=== PATIENT | male | born 1965 | race Caucasian/White ===

== ENCOUNTER 2017-10-20 06:34 | Day surgery (SDC) | payer OTHER ==
[~2017-10-20 06:34] MED LIST: Lactated Ringers 1,000 ML IV SCH
[2017-10-20] MEDS ORDERED: fentaNYL 100 MCG/2 ML SDV ONE (07:36)
[2017-10-20] MEDS ORDERED: Propofol 200 MG/20 ML SDV ONE (07:36)
[2017-10-20] MEDS ORDERED: Midazolam 1 MG/ML 2 ML SDV ONE (07:37)
--- NOTE | 2017-10-20 14:35 | OR ---
DATE OF PROCEDURE: 10/20/2017 PREOPERATIVE DIAGNOSIS: Colon cancer screening. POSTOPERATIVE DIAGNOSIS: Unremarkable colonoscopy. PROCEDURE PERFORMED: Colonoscopy to the cecum. ANESTHESIA: IV anesthesia with monitored anesthesia care. INDICATION: This 51-year-old white male is referred for a colonoscopy for colon cancer screening. He has never had a colonoscopic exam. I counseled him for the procedure including risks and alternatives, and he gave his informed consent to proceed. DESCRIPTION OF PROCEDURE: The patient was placed in the left lateral decubitus position. IV anesthesia was administered by the Anesthesia Service. Time-out was held. A rectal exam was performed, which was unremarkable. The flexible video Olympus colonoscope was introduced through his anus, up his rectum, and out his colon, all the way to the cecum. Once the cecum was reached, the scope was slowly withdrawn, examining the mucosa throughout. No mucosal abnormalities were noted. The scope was retroflexed in the rectum with the distal rectum appearing unremarkable. The scope was straightened and removed. He tolerated the procedure well. Marco A Posadas MD /[id number]
== END 2017-10-20 09:20 | disposition home or self-care (01) ==
LOC: JP.SDS 06:34
PROVIDERS: ATTEND Surgery
DX: Z12.11 Encounter for screening for malignant neoplasm of colon (principal); K21.9 Gastro-esophageal reflux disease without esophagitis
CPT/HCPCS: 45378; J2250; J2704; J3010; J7120

== ENCOUNTER 2021-04-25 20:27 | Emergency (ER) | payer OTHER ==
[2021-04-25] MEDS ORDERED: Acetaminophen 325 MG Tab PO PRN (20:47)
[2021-04-25] MEDS ORDERED: REMDESIVIR 200 MG in Sodium Chloride 0.9% 250 ML IV ONE (20:47)
--- NOTE | 2021-04-25 20:53 | EDM.PDOC ---
ED HPI GENERAL MEDICAL PROBLEM - General Chief Complaint: Respiratory Problem Stated Complaint: COVID POSITIVE, SOB, COUGH Time Seen by Provider: 04/25/21 20:40 Source of Information: Reports: Patient History Limitations: Reports: No Limitations - History of Present Illness INITIAL COMMENTS - FREE TEXT/NARRATIVE: Luther is a 55-year-old male presenting to the ED for evaluation of extreme shortness of breath, generalized weakness, body aches, and decreased appetite secondary to being Covid positive. Patient first had symptoms on 04/16/2021 but was officially diagnosed with COVID-19 on 04/22/2021. He states over the last 3 to 4 days he has become increasingly short of breath. Upon arrival to the ED had an SPO2 of 60% on room air. He is extremely tachypneic, tachycardic, and in respiratory distress. He normally receives his medical care at the [facility]. - Related Data Allergies Allergy/AdvReac Type Severity Reaction Status Date / Time No Known Allergies Allergy Verified 04/25/21 20:44 Home Meds: Home Meds Ibuprofen 400 mg PO ASDIRECTED PRN 10/18/17 [History] Acetaminophen [Tylenol Extra Strength] 500 mg PO ASDIRECTED 04/25/21 [History] Past Medical History HEENT History: Reports: Impaired Vision Musculoskeletal History: Reports: None - Infectious Disease History Infectious Disease History: Reports: Chicken Pox, Mumps, Novel Coronavirus - Past Surgical History HEENT Surgical History: Reports: None Musculoskeletal Surgical History: Reports: Other (See Below) Other Musculoskeletal Surgeries/Procedures:: Dislocated hip/anesthesia to put back in. rotator cuff surgery Social & Family History - Caffeine Use Caffeine Use: Reports: Coffee ED ROS GENERAL - Review of Systems Review Of Systems: See Below Constitutional: Reports: Fever, Chills, Malaise, Weakness, Decreased Appetite HEENT: Reports: No Symptoms Respiratory: Reports: Shortness of Breath, Cough Cardiovascular: Reports: Palpitations Endocrine: Reports: Fatigue GI/Abdominal: Reports: Decreased Appetite : Reports: No Symptoms Musculoskeletal: Reports: Muscle Pain Skin: Reports: No Symptoms Neurological: Reports: No Symptoms Psychiatric: Reports: Anxiety Hematologic/Lymphatic: Reports: No Symptoms Immunologic: Reports: No Symptoms ED EXAM, GENERAL - Physical Exam Exam: See Below Exam Limited By: Respiratory Distress General Appearance: Alert, Anxious, Severe Distress Eye Exam: Bilateral Eye: EOMI, PERRL Throat/Mouth: Normal Oropharynx, No Airway Compromise Head: Atraumatic, Normocephalic Neck: Normal Inspection Respiratory/Chest: Respiratory Distress, Decreased Breath Sounds (Diminished breath sounds in the bases), Rhonchi (Better rhonchi bilaterally), Other (Tachypnea) Cardiovascular: Normal Peripheral Pulses, Regular Rate, Rhythm, Tachycardia Peripheral Pulses: 2+: Radial (L), Radial (R) GI/Abdominal: Normal Bowel Sounds, Soft, Non-Tender Extremities: Normal Inspection, Normal Range of Motion Neurological: Alert, Oriented, Normal Cognition, No Motor/Sensory Deficits Psychiatric: Anxious Skin Exam: Warm, Dry, Normal Color ED RESPIRATORY PROCEDURES - Endotracheal Intubation Time of Intubation: 22:49 ET Intubation Indication: Respiratory Failure Preparation: Suction, Balloon Tested, BVM Set Up, Difficult Airway Equip Airway Assessment: Profuse Secretions Pre-Oxygenation: Assisted with BVM, 100% FiO2 Anesthesia Meds: Etomidate, Rocuronium Placement: Orotracheal, Cuffed Cords Visualized: Yes ETT Size In mm: 9.0 Number of Attempts: 1 Confirmed By: Bilateral Breath Sounds, Chest Xray Tube Secured By: By Provider Course - Vital Signs Last Recorded V/S: Last Vital Signs Temp 36.7 C 04/25/21 20:51 Pulse 88 04/25/21 23:22 Resp 18 04/25/21 23:22 BP 132/74 04/25/21 23:22 Pulse Ox 87 L 04/25/21 23:22 - Orders/Labs/Meds Orders: Active Orders 24 hr Category Date Time Status RASS Sedation Scale [RC] ASDIRECTED Care 04/25/21 22:25 Ordered Ang Chest [CT] Stat Exams 04/25/21 22:17 Ordered Chest 1V Frontal [CR] Stat Exams 04/25/21 Ordered Chest 1V Frontal [CR] Stat Exams 04/25/21 20:49 Taken CULTURE BLOOD [BC] Stat Lab 04/25/21 21:15 Ordered HEPATIC FUNCTION PANEL,HFP [CHEM] DAILY Lab 04/26/21 21:00 Ordered HEPATIC FUNCTION PANEL,HFP [CHEM] DAILY Lab 04/27/21 21:00 Ordered HEPATIC FUNCTION PANEL,[facility] [CHEM] DAILY Lab 04/28/21 21:00 Ordered HEPATIC FUNCTION PANEL,[facility] [CHEM] DAILY Lab 04/29/21 21:00 Ordered Acetaminophen [TylenoL] Med 04/25/21 20:47 Active 650 mg PO Q4H PRN Iopamidol [Isovue-370 (76%)] Med 04/25/21 22:30 Active 100 ml IV . DIRECTED Propofol Drip @ 5 MCG/KG/MIN(100ml) Med 04/25/21 22:30 Ordered propofoL [Diprivan 100 ML] 100 ml IV TITRATE Sodium Chloride 0.9% [Normal Saline] 1,000 ml Med 04/25/21 23:30 Ordered IV ASDIRECTED Sodium Chloride 0.9% [Normal Saline] 100 ml Med 04/25/21 22:30 Active IV ASDIRECTED dexAMETHasone [Decadron] Med 04/25/21 21:00 Active 6 mg IVPUSH DAILY Desired Level of Sedation (RASS) [AST] Click to Edit Ot 04/25/21 22:25 Ordered Isolation [COMM] Stat Ot 04/25/21 20:47 Ordered Medication Orders Acetaminophen (Acetaminophen 325 Mg Tab) 650 mg PO Q4H PRN PRN Reason: Fever Greater Than 101 Dexamethasone (Dexamethasone 4 Mg/Ml Sdv) 6 mg IVPUSH DAILY TOMAS Stop: 05/04/21 09:01 Last Admin: 04/25/21 21:05 Dose: 6 mg Documented by: TONO Sodium Chloride (Normal Saline) 100 mls @ 3 mls/sec IV ASDIRECTED TOMAS Propofol (Diprivan 100 Ml) 100 mls @ 2.517 mls/hr IV TITRATE TOMAS; Protocol Sodium Chloride (Normal Saline) 1,000 mls @ 999 mls/hr IV ASDIRECTED TOMAS Iopamidol (Iopamidol 755 Mg/Ml 100 Ml Bottle) 100 ml IV . DIRECTED [facility] Labs: Laboratory Tests 04/25/21 04/25/21 04/25/21 Range/Units 20:47 21:26 21:26 WBC 4.9 (4.5-11.0) K/uL RBC 4.34 (4.30-5.90) M/uL Hgb 13.3 (12.0-15.0) g/dL Hct 35.9 L (40.0-54.0) % MCV 83 (80-98) fL MCH 31 (27-31) pg MCHC 37 H (32-36) % Plt Count 153 (150-400) K/uL Neut % (Auto) 90.6 H (36-66) % Lymph % (Auto) 5.5 L (24-44) % [place] % (Auto) 3.7 (2-6) % Eos % (Auto) 0.0 L (2-4) % Baso % (Auto) 0.2 (0-1) % D-Dimer, Quantitative (0.0-500.0) ng/mL Puncture Site Lt brachial ABG pH 7.519 H (7.350-7.450) ABG pCO2 27.9 L (35.0-42.0) mmHg ABG pO2 55.9 L (75.0-100.0) mmHg ABG HCO3 22.6 (22.0-26.0) mmol/L ABG Total CO2 19.7 L (23.0-27.0) mmol/L ABG O2 Saturation 89.3 L (95.0-98.0) % ABG O2 Content 16.5 (15.0-23.0) %vol ABG Base Excess 1.1 mm/L ABG Hemoglobin 13.3 L (13.5-18.0) g/dL ABG Oxyhemoglobin 88.4 % ABG Carboxyhemoglobin < 0.5 (0.0-1.6) % ABG Methemoglobin 0.6 % Aroldo Test Not performed O2 Delivery Device Non rebr mask Oxygen Flow Rate 15.0 L Sodium (140-148) mmol/L Potassium (3.6-5.2) mmol/L Chloride (100-108) mmol/L Carbon Dioxide (21-32) mmol/L Anion Gap (5.0-14.0) mmol/L BUN (7-18) mg/dL Creatinine (0.8-1.3) mg/dL Est Cr Clr Drug Dosing mL/min Estimated GFR (MDRD) (>60) Glucose (74-106) mg/dL Lactic Acid (0.4-2.0) mmol/L Calcium (8.5-10.1) mg/dL Ferritin 13680 H (8-388) ng/ml Total Bilirubin (0.2-1.0) mg/dL Direct Bilirubin (0.0-0.2) mg/dL Indirect Bilirubin AST (15-37) U/L ALT (12-78) U/L Alkaline Phosphatase (46-116) U/L Lactate Dehydrogenase (85-227) U/L C-Reactive Protein (0.0-0.3) mg/dL Total Protein (6.4-8.2) g/dL Albumin (3.4-5.0) g/dL Globulin (2.3-3.5) g/dL Albumin/Globulin Ratio (1.2-2.2) Procalcitonin ng/mL 04/25/21 04/25/21 04/25/21 Range/Units 21:26 21:26 21:26 WBC (4.5-11.0) K/uL RBC (4.30-5.90) M/uL Hgb (12.0-15.0) g/dL Hct (40.0-54.0) % MCV (80-98) fL MCH (27-31) pg MCHC (32-36) % Plt Count (150-400) K/uL Neut % (Auto) (36-66) % Lymph % (Auto) (24-44) % [place] % (Auto) (2-6) % Eos % (Auto) (2-4) % Baso % (Auto) (0-1) % D-Dimer, Quantitative 3338.19 H (0.0-500.0) ng/mL Puncture Site ABG pH (7.350-7.450) ABG pCO2 (35.0-42.0) mmHg ABG pO2 (75.0-100.0) mmHg ABG HCO3 (22.0-26.0) mmol/L ABG Total CO2 (23.0-27.0) mmol/L ABG O2 Saturation (95.0-98.0) % ABG O2 Content (15.0-23.0) %vol ABG Base Excess mm/L ABG Hemoglobin (13.5-18.0) g/dL ABG Oxyhemoglobin % ABG Carboxyhemoglobin (0.0-1.6) % ABG Methemoglobin % Aroldo Test O2 Delivery Device Oxygen Flow Rate L Sodium 114 L* (140-148) mmol/L Potassium 3.9 (3.6-5.2) mmol/L Chloride 81 L (100-108) mmol/L Carbon Dioxide 23 (21-32) mmol/L Anion Gap 13.9 (5.0-14.0) mmol/L BUN 9 (7-18) mg/dL Creatinine 0.9 (0.8-1.3) mg/dL Est Cr Clr Drug Dosing 100.59 mL/min Estimated GFR (MDRD) > 60 (>60) Glucose 145 H (74-106) mg/dL Lactic Acid 1.8 (0.4-2.0) mmol/L Calcium 7.7 L (8.5-10.1) mg/dL Ferritin (8-388) ng/ml Total Bilirubin 0.9 (0.2-1.0) mg/dL Direct Bilirubin 0.31 H (0.0-0.2) mg/dL Indirect Bilirubin 0.59 AST 908 H (15-37) U/L ALT 374 H (12-78) U/L Alkaline Phosphatase 81 (46-116) U/L Lactate Dehydrogenase 1245 H (85-227) U/L C-Reactive Protein 8.46 H (0.0-0.3) mg/dL Total Protein 5.7 L (6.4-8.2) g/dL Albumin 2.6 L (3.4-5.0) g/dL Globulin 3.1 (2.3-3.5) g/dL Albumin/Globulin Ratio 0.8 L (1.2-2.2) Procalcitonin ng/mL 04/25/21 Range/Units 21:26 WBC (4.5-11.0) K/uL RBC (4.30-5.90) M/uL Hgb (12.0-15.0) g/dL Hct (40.0-54.0) % MCV (80-98) fL MCH (27-31) pg MCHC (32-36) % Plt Count (150-400) K/uL Neut % (Auto) (36-66) % Lymph % (Auto) (24-44) % [place] % (Auto) (2-6) % Eos % (Auto) (2-4) % Baso % (Auto) (0-1) % D-Dimer, Quantitative (0.0-500.0) ng/mL Puncture Site ABG pH (7.350-7.450) ABG pCO2 (35.0-42.0) mmHg ABG pO2 (75.0-100.0) mmHg ABG HCO3 (22.0-26.0) mmol/L ABG Total CO2 (23.0-27.0) mmol/L ABG O2 Saturation (95.0-98.0) % ABG O2 Content (15.0-23.0) %vol ABG Base Excess mm/L ABG Hemoglobin (13.5-18.0) g/dL ABG Oxyhemoglobin % ABG Carboxyhemoglobin (0.0-1.6) % ABG Methemoglobin % Aroldo Test O2 Delivery Device Oxygen Flow Rate L Sodium (140-148) mmol/L Potassium (3.6-5.2) mmol/L Chloride (100-108) mmol/L Carbon Dioxide (21-32) mmol/L Anion Gap (5.0-14.0) mmol/L BUN (7-18) mg/dL Creatinine (0.8-1.3) mg/dL Est Cr Clr Drug Dosing mL/min Estimated GFR (MDRD) (>60) Glucose (74-106) mg/dL Lactic Acid (0.4-2.0) mmol/L Calcium (8.5-10.1) mg/dL Ferritin (8-388) ng/ml Total Bilirubin (0.2-1.0) mg/dL Direct Bilirubin (0.0-0.2) mg/dL Indirect Bilirubin AST (15-37) U/L ALT (12-78) U/L Alkaline Phosphatase (46-116) U/L Lactate Dehydrogenase (85-227) U/L C-Reactive Protein (0.0-0.3) mg/dL Total Protein (6.4-8.2) g/dL Albumin (3.4-5.0) g/dL Globulin (2.3-3.5) g/dL Albumin/Globulin Ratio (1.2-2.2) Procalcitonin 0.85 ng/mL Meds: Medications Generic Name Dose Route Start Last Admin Trade Name Freq PRN Reason Stop Dose Admin Acetaminophen 650 mg 04/25/21 20:47 Acetaminophen 325 Mg Tab PO Q4H PRN Fever Greater Than 101 Dexamethasone 6 mg 04/25/21 21:00 04/25/21 21:05 Dexamethasone 4 Mg/Ml Sdv IVPUSH 05/04/21 09:01 6 mg DAILY TOMAS Administration Sodium Chloride 100 mls @ 3 mls/sec 04/25/21 22:30 Normal Saline IV ASDIRECTED TOMAS Propofol 100 mls @ 2.517 mls/hr 04/25/21 22:30 Diprivan 100 Ml IV TITRATE TOMAS Protocol 5 MCG/KG/MIN Sodium Chloride 1,000 mls @ 999 mls/hr 04/25/21 23:30 Normal Saline IV ASDIRECTED TOMAS Iopamidol 100 ml 04/25/21 22:30 Iopamidol 755 Mg/Ml 100 Ml Bottle IV . DIRECTED TOMAS Discontinued Medications Generic Name Dose Route Start Last Admin Trade Name Homar PRN Reason Stop Dose Admin Etomidate 24 mg 04/25/21 22:24 Etomidate 2 Mg/Ml 10 Ml Sdv IVPUSH 04/25/21 22:25 ONETIME ONE Remdesivir 200 mg/ Sodium 250 mls @ 250 mls/hr 04/25/21 20:47 04/25/21 21:11 Chloride IV 04/25/21 20:48 250 mls/hr ONETIME ONE Administration Propofol Confirm 04/25/21 22:54 Diprivan 100 Ml Administered 04/25/21 22:55 Dose 100 mls @ as directed .ROUTE .STK-MED ONE Rocuronium [place] 100 mg 04/25/21 22:24 Rocuronium 50 Mg/5 Ml Vial IVPUSH 04/25/21 22:25 ONETIME ONE - Radiology Interpretation Free Text/Narrative:: I reviewed the One-view portable chest x-ray and the patient showing significant bilateral groundglass infiltrates consistent with Covid pneumonia. I reviewed the 1 view chest x-ray after intubation showing the tip of the ET tube approximately 2 cm above the norm. - Re-Assessments/Exams Free Text/Narrative Re-Assessment/Exam: 04/25/21 23:27 the patient became much more hypoxic and despite aggressive measures we are not able to get his oxygenation up triggering the initiation of RSI and intubation. The patient's SPO2 was in the low 70s on high flow oxygen. We have move the patient to room 10, trauma room and put the patient in proper position. Second IV was started. We initiated RSI with etomidate 24 mg IV push and rocuronium 100 mg IV push. There were copious secretions in the retropharynx which were suctioned. A video laryngoscopy was used to localize and visualize the cords and a 9 oh ET tube was placed through the cords into the airway. This was secured and a inline filter was placed. Auscultation revealed good bilateral breath sounds and no sounds in the belly. X-ray was performed showing the depth of the ET tube at approximately 2 cm above the norm. The patient was bagged aggressively in an attempt to get his SPO2 back up into the mid 70s and then was placed on a ventilator with PEEP which now has gotten his SPO2 up into the 90s. Patient did become hypotensive after intubation with a pressure of 94/52. We initiated hydration as the patient also was found to have significant hyponatremia. Labs were reviewed showing a normal CBC with a leukocyte count of 4.9, hemoglobin of 13.3, hematocrit of 35.9, and a platelet count of 153,000. The comprehensive metabolic panel shows a sodium of 114, potassium 3.9, chloride of 81, bicarbonate of 23, BUN of 9 with a creatinine of 0.9 and a glucose of 145. The calcium is low at 7.8 with a albumin of 2.6 giving a corrected calcium of 8.3. Total protein is low at 5.7. Direct bili is 0.31 with indirect of 0.59 and a total of 0.9. Alkaline phosphatase is 81 with an AST of 908 and an ALT of 374. LDH is elevated at 1245, CRP is elevated at 8.46, lactate is normal at 1.8, pro calcitonin is elevated at 0.85 [place] [address]. The D-dimer is markedly elevated at 3338. An ABG was obtained on 15 L with close fitting facemask showing a pH of 7.5, PCO2 of 27.9, PO2 of 55.9, and a bicarbonate of 22.6. Unfortunately, the patient received dexamethasone 6 mg IV and remdesivir 200 mg IV prior to seeing his AST and ALT returned. We will need to continue to monito r liver function but I felt the risks of the patient going into respiratory collapse due to COVID-19 outweighed the risks of potential liver injury due to the remdesivir. I initially discussed the case with Dr. Torres at the [facility] in [place] who was initially going to accept the patient for admission to their ICU, however, they felt that the patient was probably too sick to come there and recommended I contact the [facility] in [place]. I discussed the case with the triage nurse at the [facility] who is looking into the availability of whether they can accept the patient. [facility] was activated for transfer of the patient. 04/25/21 23:52 when a fluid bolus of 0.9% IV normal saline for hypotension and hyponatremia. 04/26/21 00:07 I discussed the case with Dr. Calixto from the [facility] in [place] who graciously accepts the patient in transfer for admission to the SICU. [facility] is providing transportation of the patient to the [facility]. Departure - Departure Time of Disposition: 00:08 Disposition: DC/Tfer to Acute Hospital 02 Condition: Critical Clinical Impression: Pneumonia due to COVID-19 virus, Hypoxia, Hyponatremia, Elevated transaminase level Respiratory failure Qualifiers: Chronicity: acute Respiratory failure complication: hypoxia Qualified Code(s): J96.01 - Acute respiratory failure with hypoxia - Discharge Information Referrals: PCP,None [Primary Care Provider] - Forms: ED Department Discharge Critical Care Note - Critical Care Note Total Time (mins): 60 Comments: Critical care time of 60 minutes for patient care, review of records, and facilitation of transfer. This excludes procedures. Sepsis Event Note (ED) - Focused Exam Vital Signs: Vital Signs Temp Pulse Resp BP Pulse Ox 04/25/21 23:22 88 18 132/74 87 L 04/25/21 22:14 102 H 141/72 H 83 L 04/25/21 21:49 93 100/56 L 84 L 04/25/21 21:33 89 106/57 L 88 L 04/25/21 20:51 36.7 C 101 H 36 H 124/72 86 L 04/25/21 20:50 86 L 04/25/21 20:45 36.7 C 101 H 36 H 124/72 64 L - Problem List & Annotations (1) Elevated transaminase level SNOMED Code(s): 033486978, 682172669 Code(s): R74.01 - ELEVATION OF LEVELS OF LIVER TRANSAMINASE LEVELS Status: Acute Priority: High Current Visit: Yes (2) Hyponatremia SNOMED Code(s): 41168979 Code(s): E87.1 - HYPO-OSMOLALITY AND HYPONATREMIA Status: Acute Priority: High Current Visit: Yes (3) Hypoxia SNOMED Code(s): 769699250 Code(s): R09.02 - HYPOXEMIA Status: Acute Priority: High Current Visit: Yes (4) Pneumonia due to COVID-19 virus SNOMED Code(s): 344419939783886683 Code(s): U07.1 - COVID-19; J12.82 - PNEUMONIA DUE TO CORONAVIRUS DISEASE 2019 Status: Acute Priority: High Current Visit: Yes (5) Respiratory failure SNOMED Code(s): 256864660 Code(s): J96.90 - RESPIRATORY FAILURE, UNSP, UNSP W HYPOXIA OR HYPERCAPNIA Status: Acute Priority: High Current Visit: Yes Qualifiers: Chronicity: acute Respiratory failure complication: hypoxia Qualified Code(s): J96.01 - Acute respiratory failure with hypoxia - Problem List Review Problem List Initiated/Reviewed/Updated: Yes - My Orders Last 24 Hours: My Active Orders 04/25/21 Chest 1V Frontal [CR] Stat 04/25/21 20:47 Acetaminophen [TylenoL] 650 mg PO Q4H PRN Isolation [COMM] Stat 04/25/21 20:49 Chest 1V Frontal [CR] Stat 04/25/21 21:00 dexAMETHasone [Decadron] 6 mg IVPUSH DAILY 04/25/21 21:15 CULTURE BLOOD [BC] Stat 04/25/21 22:17 Ang Chest [CT] Stat 04/25/21 22:25 RASS Sedation Scale [RC] ASDIRECTED Desired Level of Sedation (RASS) [AST] Click to Edit 04/25/21 22:30 Iopamidol [Isovue-370 (76%)] 100 ml IV . DIRECTED Propofol Drip @ 5 MCG/KG/MIN(100ml) propofoL [Diprivan 100 ML] 100 ml IV TITRATE Sodium Chloride 0.9% [Normal Saline] 100 ml IV ASDIRECTED 04/25/21 23:30 Sodium Chloride 0.9% [Normal Saline] 1,000 ml IV ASDIRECTED 04/26/21 21:00 HEPATIC FUNCTION PANEL,HFP [CHEM] DAILY 04/27/21 21:00 HEPATIC FUNCTION PANEL,HFP [CHEM] DAILY 04/28/21 21:00 HEPATIC FUNCTION PANEL,HFP [CHEM] DAILY 04/29/21 21:00 HEPATIC FUNCTION PANEL,HFP [CHEM] DAILY - Assessment/Plan Last 24 Hours: My Active Orders 04/25/21 Chest 1V Frontal [CR] Stat 04/25/21 20:47 Acetaminophen [TylenoL] 650 mg PO Q4H PRN Isolation [COMM] Stat 04/25/21 20:49 Chest 1V Frontal [CR] Stat 04/25/21 21:00 dexAMETHasone [Decadron] 6 mg IVPUSH DAILY 04/25/21 21:15 CULTURE BLOOD [BC] Stat 04/25/21 22:17 Ang Chest [CT] Stat 04/25/21 22:25 RASS Sedation Scale [RC] ASDIRECTED Desired Level of Sedation (RASS) [AST] Click to Edit 04/25/21 22:30 Iopamidol [Isovue-370 (76%)] 100 ml IV . DIRECTED Propofol Drip @ 5 MCG/KG/MIN(100ml) propofoL [Diprivan 100 ML] 100 ml IV TITRATE Sodium Chloride 0.9% [Normal Saline] 100 ml IV ASDIRECTED 04/25/21 23:30 Sodium Chloride 0.9% [Normal Saline] 1,000 ml IV ASDIRECTED 04/26/21 21:00 HEPATIC FUNCTION PANEL,HFP [CHEM] DAILY 04/27/21 21:00 HEPATIC FUNCTION PANEL,HFP [CHEM] DAILY 04/28/21 21:00 HEPATIC FUNCTION PANEL,HFP [CHEM] DAILY 04/29/21 21:00 HEPATIC FUNCTION PANEL,HFP [CHEM] DAILY
[2021-04-25] MEDS ORDERED: Dexamethasone 4 MG/ML SDV IVPUSH SCH (21:00)
[2021-04-25] MEDS ORDERED: Rocuronium 50 MG/5 ML Vial IVPUSH ONE (22:24)
[2021-04-25] MEDS ORDERED: Etomidate 2 MG/ML 10 ML SDV IVPUSH ONE (22:24)
[2021-04-25] MEDS ORDERED: Iopamidol 755 Mg/ML 100 ML Bottle IV SCH (22:30)
[2021-04-25] MEDS ORDERED: Sodium Chloride 0.9% 100 ML IV SCH (22:30)
[2021-04-25] MEDS ORDERED: propofoL 100 ML IV SCH (22:30)
[2021-04-25] MEDS ORDERED: propofoL 100 ML ONE (22:54)
[2021-04-25] MEDS ORDERED: Sodium Chloride 0.9% 1,000 ML IV SCH (23:30)
[2021-04-25] MEDS ORDERED: Enoxaparin 80 MG/0.8 ML Syringe SUBCUT ONE (23:50)
[2021-04-26] MEDS ORDERED: Sodium Chloride 0.9% 1,000 ML IV SCH (00:15)
[2021-04-26] MEDS ORDERED: Propofol 200 MG/20 ML SDV IVPUSH ONE (00:31)
[2021-04-26] MEDS ORDERED: Norepinephrine 4 MG in Dextrose 5% in Water 246 ML IV SCH ×2 (00:45)
[2021-04-26] MEDS ORDERED: Pantoprazole 40 MG Vial IVPUSH SCH (01:30)
[2021-04-26] MEDS ORDERED: Pantoprazole 40 MG Vial ONE (01:42)
[2021-04-26] MEDS ORDERED: propofoL 100 ML IV SCH (04:00)
--- NOTE | 2021-04-28 09:15 | CR ---
CHEST: Portable 04/25/2021 at 9:18 PM CLINICAL HISTORY:Respiratory failure COMPARISON:None FINDINGS: Patient has moderate diffuse bilateral pneumonic infiltrates. Heart size is normal. There are no pleural effusions Impression: Moderate diffuse bilateral pneumonias CHEST: Portable 04/25/2021 at 11:03 PM CLINICAL HISTORY:Intubation COMPARISON:Earlier same day FINDINGS: Patient has been intubated. Endotracheal tube tip is just over 3 cm from the norm. Diffuse bilateral pulmonary infiltrates are unchanged. Impression: Endotracheal tube in good position Moderate diffuse bilateral pulmonary infiltrates
== END 2021-04-26 03:20 ==
LOC: JP.ED 20:27
DX: U07.1 COVID-19 (principal); J12.82 Pneumonia due to coronavirus disease 2019; J96.01 Acute respiratory failure with hypoxia; E87.1 Hypo-osmolality and hyponatremia; R74.01 Elevation of levels of liver transaminase levels
CPT/HCPCS: 31500; 36415; 36600; 43752; 51702; 71045; 80048; 80076; 82728; 82803; 83605; 83615; 84145; 85025; 85379; 85610; 85730; 86140; 87040; 96365; 96372; 99285; C9113; J1100; J1650; J2704; J3490; J7030; J7050; J7060

== ENCOUNTER 2024-07-02 03:34 | Emergency (ER) | payer OTHER ==
[2024-07-02 04:30] LABS: BASOPHILS ABSOLUTE AUTO 0.03 K/uL (0.00-0.10); BASOPHILS PERCENT AUTO 0.4 % (0.1-1.3); EOSINOPHILS ABSOLUTE AUTO 0.13 K/uL (0.00-0.40); EOSINOPHILS PERCENT AUTO 1.9 % (0.0-5.4); HEMATOCRIT 39.3 % (38.4-49.7); HEMOGLOBIN 13.5 g/dL (12.9-16.9); IMMATURE GRAN PERCENT AUTO 0.1 % (0.0-0.7); LYMPHOCYTES ABSOLUTE AUTO 1.36 K/uL (0.8-3.3); LYMPHOCYTES PERCENT AUTO 20.2 % (11.4-47.7); MEAN CORPUSCULAR HEMOGLOBIN 32.3 pg (31.6-35.5); MEAN CORPUSCULAR HGB CONC 34.4 g/dL (31.6-35.5); MONOCYTES ABSOLUTE AUTO 0.49 K/uL (0.20-0.90); MONOCYTES PERCENT AUTO 7.3 % (3.3-12.6); NEUTROPHILS ABSOLUTE AUTO 4.72 K/uL (1.0-7.6); NEUTROPHILS PERCENT AUTO 70.1 % (40.0-78.1); PLATELET COUNT,PLT 170 K/uL (130-375); RED BLOOD CELL COUNT 4.18 M/uL (4.14-5.76); WHITE BLOOD CELL COUNT,WBC 6.7 K/uL (3.2-11.0)
[2024-07-02 04:53] LABS: A/G RATIO 0.9 (1.2-2.2); ALANINE AMINOTRANSFERASE,ALT 89 U/L (12-78); ALBUMIN 3.6 g/dL (3.4-5.0); ALKALINE PHOSPHATASE 493 U/L (46-116); ANION GAP 15.8 mmol/L (5.0-14.0); ASPARTATE AMNIOTRANSFERASE,AST 52 U/L (15-37); BILIRUBIN TOTAL 0.8 mg/dL (0.2-1.0); BLOOD UREA NITROGEN,BUN 25 mg/dL (7-18); CARBON DIOXIDE,CO2 25 mmol/L (21-32); CHLORIDE,CL 101 mmol/L (100-108); CREATININE 1.9 mg/dL (0.8-1.3); EST CRCL DRUG DOSING (CG) 45.95 mL/min; ESTIMATED GFR 40 mL/min (>60); GLUCOSE RANDOM 134 mg/dL (74-106); IMMATURE GRAN ABSOLUTE AUTO 0.01 K/uL (0.00-0.23); MAGNESIUM 1.9 mg/dL (1.8-2.4); POTASSIUM,K 3.8 mmol/L (3.6-5.2); PROTEIN TOTAL,TP 7.5 g/dL (6.4-8.2); SODIUM,NA 138 mmol/L (140-148); TROPONIN I HIGH SENSITIVITY 7.9 pg/mL (<=60.3)
== END 2024-07-02 07:44 | disposition other institution (70) ==
LOC: JP.ED 03:34
DX: R29.818 Other symptoms and signs involving the nervous system (principal); Z86.16 Personal history of COVID-19
CPT/HCPCS: 36415; 70450; 80053; 83735; 84484; 85025; 93005; 93010; 99284; 99285

== ENCOUNTER 2024-07-08 13:40 | Emergency (ER) | payer OTHER ==
[2024-07-08 18:20] LABS: BASOPHILS ABSOLUTE AUTO 0.04 K/uL (0.00-0.10); BASOPHILS PERCENT AUTO 0.5 % (0.1-1.3); EOSINOPHILS ABSOLUTE AUTO 0.08 K/uL (0.00-0.40); HEMATOCRIT 39.7 % (38.4-49.7); HEMOGLOBIN 13.8 g/dL (12.9-16.9); IMMATURE GRAN PERCENT AUTO 0.2 % (0.0-0.7); LYMPHOCYTES ABSOLUTE AUTO 1.53 K/uL (0.8-3.3); LYMPHOCYTES PERCENT AUTO 18.7 % (11.4-47.7); MEAN CORPUSCULAR HEMOGLOBIN 32.1 pg (31.6-35.5); MEAN CORPUSCULAR HGB CONC 34.8 g/dL (31.6-35.5); MEAN CORPUSCULAR VOLUME 92.3 fL (81.4-99.0); MONOCYTES ABSOLUTE AUTO 0.58 K/uL (0.20-0.90); MONOCYTES PERCENT AUTO 7.1 % (3.3-12.6); NEUTROPHILS ABSOLUTE AUTO 5.92 K/uL (1.0-7.6); NEUTROPHILS PERCENT AUTO 72.5 % (40.0-78.1); PLATELET COUNT,PLT 204 K/uL (130-375); WHITE BLOOD CELL COUNT,WBC 8.2 K/uL (3.2-11.0)
[2024-07-08 18:24] LABS: IMMATURE GRAN ABSOLUTE AUTO 0.02 K/uL (0.00-0.23)
[2024-07-08 18:39] LABS: A/G RATIO 0.9 (1.2-2.2); ALANINE AMINOTRANSFERASE,ALT 90 U/L (12-78); ALBUMIN 3.6 g/dL (3.4-5.0); ALKALINE PHOSPHATASE 472 U/L (46-116); ASPARTATE AMNIOTRANSFERASE,AST 52 U/L (15-37); BILIRUBIN TOTAL 0.9 mg/dL (0.2-1.0); BLOOD UREA NITROGEN,BUN 20 mg/dL (7-18); CARBON DIOXIDE,CO2 29 mmol/L (21-32); CHLORIDE,CL 102 mmol/L (100-108); CREATININE 1.6 mg/dL (0.8-1.3); EST CRCL DRUG DOSING (CG) 54.64 mL/min; ESTIMATED GFR 49 mL/min (>60); GLUCOSE RANDOM 117 mg/dL (74-106); POTASSIUM,K 3.9 mmol/L (3.6-5.2); PROTEIN TOTAL,TP 7.6 g/dL (6.4-8.2); SODIUM,NA 139 mmol/L (140-148)
[2024-07-08 18:40] LABS: ANION GAP 11.9 mmol/L (5.0-14.0)
== END 2024-07-08 18:55 | disposition home or self-care (01) ==
LOC: JP.ED 13:40
DX: I63.9 Cerebral infarction, unspecified (principal); Z79.899 Other long term (current) drug therapy; Z86.16 Personal history of COVID-19
CPT/HCPCS: 36415; 70450; 70450-26; 80053; 85025; 99285

== ENCOUNTER 2024-07-10 12:08 | Inpatient (IN) | payer OTHER ==
[2024-07-10 12:52] LABS: BASOPHILS ABSOLUTE AUTO 0.05 K/uL (0.00-0.10); BASOPHILS PERCENT AUTO 0.5 % (0.1-1.3); EOSINOPHILS ABSOLUTE AUTO 0.12 K/uL (0.00-0.40); EOSINOPHILS PERCENT AUTO 1.3 % (0.0-5.4); HEMATOCRIT 42.6 % (38.4-49.7); HEMOGLOBIN 14.8 g/dL (12.9-16.9); IMMATURE GRAN PERCENT AUTO 0.1 % (0.0-0.7); LYMPHOCYTES ABSOLUTE AUTO 1.23 K/uL (0.8-3.3); LYMPHOCYTES PERCENT AUTO 13.5 % (11.4-47.7); MEAN CORPUSCULAR HEMOGLOBIN 32.3 pg (31.6-35.5); MEAN CORPUSCULAR HGB CONC 34.7 g/dL (31.6-35.5); MONOCYTES ABSOLUTE AUTO 0.72 K/uL (0.20-0.90); MONOCYTES PERCENT AUTO 7.9 % (3.3-12.6); NEUTROPHILS ABSOLUTE AUTO 6.98 K/uL (1.0-7.6); NEUTROPHILS PERCENT AUTO 76.7 % (40.0-78.1); PLATELET COUNT,PLT 224 K/uL (130-375); RED BLOOD CELL COUNT 4.58 M/uL (4.14-5.76); WHITE BLOOD CELL COUNT,WBC 9.1 K/uL (3.2-11.0)
[2024-07-10 12:53] LABS: IMMATURE GRAN ABSOLUTE AUTO 0.01 K/uL (0.00-0.23)
[2024-07-10 13:12] LABS: A/G RATIO 0.9 (1.2-2.2); ALANINE AMINOTRANSFERASE,ALT 87 U/L (12-78); ALBUMIN 3.7 g/dL (3.4-5.0); ALKALINE PHOSPHATASE 478 U/L (46-116); ASPARTATE AMNIOTRANSFERASE,AST 49 U/L (15-37); BLOOD UREA NITROGEN,BUN 21 mg/dL (7-18); CALCIUM 9.4 mg/dL (8.5-10.1); CARBON DIOXIDE,CO2 28 mmol/L (21-32); CHLORIDE,CL 101 mmol/L (100-108); CREATININE 1.7 mg/dL (0.8-1.3); ESTIMATED GFR 46 mL/min (>60); GLUCOSE RANDOM 109 mg/dL (74-106); POTASSIUM,K 4.5 mmol/L (3.6-5.2); PROTEIN TOTAL,TP 7.9 g/dL (6.4-8.2); SODIUM,NA 139 mmol/L (140-148)
[2024-07-10 13:15] LABS: ANION GAP 14.5 mmol/L (5.0-14.0)
[2024-07-10 13:43] LABS: APPEARANCE,URINE CLEAR (CLEAR); BILIRUBIN,URINE NEGATIVE (NEGATIVE); COLOR,URINE YELLOW (YELLOW); GLUCOSE,URINE NEGATIVE (NEGATIVE); KETONES,URINE NEGATIVE (NEGATIVE); LEUKOCYTE ESTERASE,URINE NEGATIVE (NEGATIVE); NITRITE,URINE NEGATIVE (NEGATIVE); OCCULT BLOOD,URINE TRACE-LYSED (NEGATIVE); PH,URINE 5.5 (5.0-8.0); PROTEIN,URINE NEGATIVE (NEGATIVE); UROBILINOGEN,URINE 0.2 EU/dL (0.2-1.0)
[2024-07-10 13:49] LABS: AMORPHOUS SEDIMENT,URINE RARE; BACTERIA,URINE NOT SEEN; EPITHELIAL CELLS,URINE NOT SEEN; MUCUS,URINE NOT SEEN; RBC,URINE 0-5 (0-5); WBC,URINE NOT SEEN (0-5)
[2024-07-10] MEDS: Gadoteridol 279.3 MG/ML 20 ML SDV IV SCH (15:22)
[2024-07-10] MEDS: Apixaban 5 MG Tab PO ONE (21:15)
[2024-07-10] MEDS ORDERED: Sennosides/Docusate Sodium 50-8.6 MG Tab PO PRN (22:19)
[2024-07-10] MEDS ORDERED: Acetaminophen 325 MG Tab PO PRN (22:19)
[2024-07-10] MEDS ORDERED: Melatonin 3 MG Tab PO PRN (22:19)
[2024-07-10] MEDS ORDERED: Ondansetron 4 MG Tab.DIS PO PRN (22:19)
[2024-07-10] MEDS ORDERED: Ondansetron 4 MG/2 ML SDV IV PRN (22:19)
[2024-07-11] MEDS: Apixaban 5 MG **PTOM PO SCH (08:46)
[2024-07-11] MEDS: Apixaban 2.5 MG Tab PO SCH (23:24)
== END 2024-07-13 14:15 | DRG 57 ==
LOC: JP.ED 12:08 → JP.MS 22:03 → OBSVTOIN 07-12 13:57
PROVIDERS: ADMIT Registered Nurse; ATTEND Hospitalist
DX: I69.354 Hemiplegia and hemiparesis following cerebral infarction affecting left non-dominant side (principal); I48.91 Unspecified atrial fibrillation; I69.398 Other sequelae of cerebral infarction; Z86.73 Personal history of transient ischemic attack (TIA), and cerebral infarction without residual deficits; Z79.899 Other long term (current) drug therapy; Z98.890 Other specified postprocedural states; Z86.16 Personal history of COVID-19; Z79.01 Long term (current) use of anticoagulants
CPT/HCPCS: 36415; 70544 ×2; 70549 ×2; 70551 ×2; 80053; 81001; 85025; 93005; 97110; 97116 ×2; 97163; 97167; 97530; 99222; 99232; 99285; A9579 ×2; 93010; 97535-GO; 99238; A9270-GY; G0378

== ENCOUNTER 2024-10-12 19:47 | Emergency (ER) | payer OTHER ==
[2024-10-12 20:12] LABS: BASOPHILS ABSOLUTE AUTO 0.06 K/uL (0.00-0.10); BASOPHILS PERCENT AUTO 0.9 % (0.1-1.3); EOSINOPHILS ABSOLUTE AUTO 0.18 K/uL (0.00-0.40); EOSINOPHILS PERCENT AUTO 2.6 % (0.0-5.4); HEMATOCRIT 39.5 % (38.4-49.7); HEMOGLOBIN 13.4 g/dL (12.9-16.9); IMMATURE GRAN PERCENT AUTO 0.3 % (0.0-0.7); LYMPHOCYTES ABSOLUTE AUTO 1.47 K/uL (0.8-3.3); LYMPHOCYTES PERCENT AUTO 21.4 % (11.4-47.7); MEAN CORPUSCULAR HEMOGLOBIN 32.4 pg (31.6-35.5); MEAN CORPUSCULAR HGB CONC 33.9 g/dL (31.6-35.5); MEAN CORPUSCULAR VOLUME 95.4 fL (81.4-99.0); MONOCYTES ABSOLUTE AUTO 0.59 K/uL (0.20-0.90); MONOCYTES PERCENT AUTO 8.6 % (3.3-12.6); NEUTROPHILS ABSOLUTE AUTO 4.56 K/uL (1.0-7.6); NEUTROPHILS PERCENT AUTO 66.2 % (40.0-78.1); PLATELET COUNT,PLT 176 K/uL (130-375); RED BLOOD CELL COUNT 4.14 M/uL (4.14-5.76); WHITE BLOOD CELL COUNT,WBC 6.9 K/uL (3.2-11.0)
[2024-10-12 20:14] LABS: IMMATURE GRAN ABSOLUTE AUTO 0.02 K/uL (0.00-0.23)
[2024-10-12 20:35] LABS: ALANINE AMINOTRANSFERASE,ALT 94 U/L (12-78); ALBUMIN 3.2 g/dL (3.4-5.0); ALKALINE PHOSPHATASE 386 U/L (46-116); ASPARTATE AMNIOTRANSFERASE,AST 41 U/L (15-37); BILIRUBIN TOTAL 0.7 mg/dL (0.2-1.0); BLOOD UREA NITROGEN,BUN 32 mg/dL (7-18); CARBON DIOXIDE,CO2 23 mmol/L (21-32); CHLORIDE,CL 103 mmol/L (100-108); CREATININE 1.8 mg/dL (0.8-1.3); EST CRCL DRUG DOSING (CG) 45.63 mL/min; ESTIMATED GFR 43 mL/min (>60); GLUCOSE RANDOM 124 mg/dL (74-106); POTASSIUM,K 3.9 mmol/L (3.6-5.2); PROTEIN TOTAL,TP 6.5 g/dL (6.4-8.2); SODIUM,NA 138 mmol/L (140-148)
[2024-10-12 20:37] LABS: ANION GAP 15.9 mmol/L (5.0-14.0)
[2024-10-12] MEDS: LORazepam 2 MG/ML SDV IM ONE (21:48)
== END 2024-10-12 21:29 | disposition home or self-care (01) ==
LOC: JP.ED 19:47
DX: G40.909 Epilepsy, unspecified, not intractable, without status epilepticus (principal); Z79.899 Other long term (current) drug therapy; Z79.82 Long term (current) use of aspirin; Z86.73 Personal history of transient ischemic attack (TIA), and cerebral infarction without residual deficits
CPT/HCPCS: 36415; 80053; 85025; 96372; 99284; J2060